=== PATIENT | male | born 1960 | race African-American/Black ===

== ENCOUNTER 2016-12-17 13:02 | Emergency (ER) | payer MEDICAID ==
[~2016-12-17] VITALS: Ht 190.5 cm; Wt 113.0 kg
[~2016-12-17 13:02] MED LIST: AMLO10TA80 PO; CALC667C4 PO; CARV25TA47 PO; COMBIV IH; ESOM40CA PO; GUAI600T PO; HYDR-4134 PO; INS7030 SUBCUT; ISOS60TA6 PO; LEVO75TA7 PO; LISI-604 PO; PIOG15TA13 PO; TEMA30CA5 PO; VIAG100 PO
[2016-12-17] MEDS ORDERED: ACETAMINOPHEN 325MG TABLET PO ONE (14:00)
[2016-12-17] MEDS ORDERED: HYDROCODONE/ACETAMINOPHEN 5/325MG TABLET PO ONE (14:45)
[2016-12-17 15:08] VITALS: BP 119/60
== END 2016-12-17 15:11 | disposition home or self-care (01) ==
LOC: ER 13:11
DX: T75.4XXA Electrocution, initial encounter (principal); Z79.899 Other long term (current) drug therapy; Z79.4 Long term (current) use of insulin; Z99.2 Dependence on renal dialysis; I13.11 Hypertensive heart and chronic kidney disease without heart failure, with stage 5 chronic kidney disease, or end stage renal disease; N18.6 End stage renal disease; E11.22 Type 2 diabetes mellitus with diabetic chronic kidney disease; W86.8XXA Exposure to other electric current, initial encounter; Y93.89 Activity, other specified; Y99.9 Unspecified external cause status; Y92.89 Other specified places as the place of occurrence of the external cause
CPT/HCPCS: 71010; 93005; 99284; Z7610

== ENCOUNTER 2017-05-01 11:03 | Emergency (ER) | payer MEDICAID ==
[~2017-05-01] VITALS: Ht 188 cm; Wt 113.0 kg
[~2017-05-01 11:03] MED LIST changes: -PIOG15TA13 PO; +PIOG15TA6 PO
[2017-05-01] MEDS ORDERED: MORPHINE SULFATE 4 MG/ML CPJ (NOT FOR IM USE) IV ONE (12:00)
[2017-05-01 13:13] LABS: BASOPHILS % 0.4 % (0.0-2.0); EOSINOPHILS % 4.5 % (0.0-5.0); HEMATOCRIT. 29.6 % (42.0-52.0); HEMOGLOBIN. 9.8 g/dL (14.0-18.0); LYMPHOCYTES % 14.8 % (20.0-50.0); MEAN CORPUSCULAR HEMOGLOBIN 33.1 pg (28.0-32.0); MEAN CORPUSCULAR VOLUME 100.2 fL (80.0-94.0); MEAN PLATELET VOLUME 9.5 fl (7.4-10.4); MONOCYTES % 8.6 % (2.0-8.0); NEUTROPHILS % 71.7 % (40.0-76.0); PLATELET 107 x1000/uL (130-400); RED BLOOD CELL COUNT 2.95 mill/uL (4.7-6.1); RED CELL DISTRIBUTION WIDTH 15.1 % (11.6-14.6)
[2017-05-01 13:20] LABS: CHLORIDE 95 mEq/L (98-107); INR 1.3; PROTHROMBIN TIME 13.1 sec (9.4-11.6)
[2017-05-01 13:30] LABS: CARBON DIOXIDE 31 mEq/L (21-32)
[2017-05-01 15:24] VITALS: BP 129/76
== END 2017-05-01 15:55 | disposition home or self-care (01) ==
LOC: ER 13:38
DX: L02.01 Cutaneous abscess of face (principal); R59.0 Localized enlarged lymph nodes; E11.22 Type 2 diabetes mellitus with diabetic chronic kidney disease; I13.11 Hypertensive heart and chronic kidney disease without heart failure, with stage 5 chronic kidney disease, or end stage renal disease; N18.6 End stage renal disease; Z89.611 Acquired absence of right leg above knee; Z99.2 Dependence on renal dialysis; Z79.4 Long term (current) use of insulin; Z95.0 Presence of cardiac pacemaker; F12.10 Cannabis abuse, uncomplicated
CPT/HCPCS: 36415; 70450; 70486; 80053; 85025; 85610; 96374; 99285; J2270; Z7610

== ENCOUNTER 2017-05-02 18:15 | Emergency (ER) | payer MEDICAID, OTHER ==
[~2017-05-02] VITALS: Ht 180.3 cm; Wt 90.0 kg
[2017-05-02 20:20] VITALS: BP 125/78
== END 2017-05-02 21:20 | disposition left against medical advice (07) ==
LOC: ER 21:12
DX: R22.1 Localized swelling, mass and lump, neck (principal); I13.11 Hypertensive heart and chronic kidney disease without heart failure, with stage 5 chronic kidney disease, or end stage renal disease; N18.6 End stage renal disease; E11.22 Type 2 diabetes mellitus with diabetic chronic kidney disease; Z99.2 Dependence on renal dialysis; F12.90 Cannabis use, unspecified, uncomplicated; Z79.84 Long term (current) use of oral hypoglycemic drugs; Z95.0 Presence of cardiac pacemaker
CPT/HCPCS: 99283; Z7610

== ENCOUNTER 2017-05-10 15:11 | Emergency (ER) | payer MEDICAID, OTHER ==
[~2017-05-10] VITALS: Ht 188 cm; Wt 113.0 kg
[~2017-05-10 15:11] MED LIST changes: -GUAI600T PO; +GUAI600T26 PO
[2017-05-10] MEDS ORDERED: SODIUM CHLORIDE 0.9% 1,000 ML IV ONE (16:31)
[2017-05-10 17:57] LABS: CHLORIDE 95 mEq/L (98-107); INR 1.3
[2017-05-10 18:00] LABS: CARBON DIOXIDE 31 mEq/L (21-32)
[2017-05-10 18:39] LABS: BASOPHILS % 0.7 % (0.0-2.0); EOSINOPHILS % 6.2 % (0.0-5.0); HEMATOCRIT. 24.8 % (42.0-52.0); HEMOGLOBIN. 8.1 g/dL (14.0-18.0); LYMPHOCYTES % 12.2 % (20.0-50.0); MEAN CORPUSCULAR HEMOGLOBIN 32.7 pg (28.0-32.0); MEAN CORPUSCULAR VOLUME 100.2 fL (80.0-94.0); MEAN PLATELET VOLUME 9.4 fl (7.4-10.4); MONOCYTES % 8.2 % (2.0-8.0); NEUTROPHILS % 72.7 % (40.0-76.0); PLATELET 134 x1000/uL (130-400); RED BLOOD CELL COUNT 2.48 mill/uL (4.7-6.1); RED CELL DISTRIBUTION WIDTH 14.9 % (11.6-14.6)
[2017-05-10 21:29] VITALS: BP 155/95
== END 2017-05-10 22:35 | disposition home or self-care (01) ==
LOC: ER 16:13
DX: R22.1 Localized swelling, mass and lump, neck (principal); R60.9 Edema, unspecified; E78.00 Pure hypercholesterolemia, unspecified; E11.22 Type 2 diabetes mellitus with diabetic chronic kidney disease; I12.0 Hypertensive chronic kidney disease with stage 5 chronic kidney disease or end stage renal disease; N18.6 End stage renal disease; D63.1 Anemia in chronic kidney disease; Z99.2 Dependence on renal dialysis; Z89.511 Acquired absence of right leg below knee; Z85.89 Personal history of malignant neoplasm of other organs and systems
CPT/HCPCS: 36415; 80053; 85025; 85610; 99284; Z7610; J7030